=== PATIENT | male | born 1995 ===

== ENCOUNTER 2016-05-07 00:18 | Observation (INO) ==
[2016-05-07] MEDS ORDERED: HYDROmorphone 2 MG/1 ML VIAL IV STA (01:05)
[2016-05-07] MEDS ORDERED: ONDANSETRON 4 MG/2 ML VIAL IV STA (01:05)
[2016-05-07] MEDS ORDERED: ceFAZolin 1,000 MG VIAL IRRIG ONE (01:05)
[2016-05-07] MEDS ORDERED: ONDANSETRON 4 MG/2 ML VIAL ONE ×2 (01:13→07:45)
[2016-05-07] MEDS ORDERED: ceFAZolin 1,000 MG VIAL ONE ×2 (01:13→07:41)
[2016-05-07] MEDS ORDERED: HYDROmorphone 2 MG/1 ML VIAL ONE (01:13)
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
[2016-05-07] MEDS ORDERED: ONDANSETRON 4 MG/2 ML VIAL IV PRN (01:23)
[2016-05-07] MEDS ORDERED: DEXTROSE 5% NACL 0.45% 1,000 ML IV SCH (01:30)
[2016-05-07 01:47] LABS: PT Patient Result 10.2 SECS; Partial Thromboplastin Time 26.1 SECS (0-40)
[2016-05-07] MEDS ORDERED: INFLUENZA VIRUS VACCINE 0.5 ML SYRINGE IM ONE (02:41)
[2016-05-07] MEDS ORDERED: PNEUMOCOCCAL VACCINE (23 VALENT) 0.5 ML VIAL IM ONE (02:42)
[2016-05-07] MEDS: HYDROmorphone 2 MG/1 ML VIAL IV PRN ×2 (05:20→09:32)
[2016-05-07] MEDS ORDERED: BUPIVACAINE 0.25% 50 ML VIAL ONE (06:36)
[2016-05-07] MEDS ORDERED: ceFAZolin 2,000 MG in PREMIX 1 EACH IV ONE (07:36)
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
[2016-05-07] MEDS ORDERED: PHENYLEPHRINE 1 MG/10 ML SYRINGE IV ONE (07:45)
[2016-05-07] MEDS ORDERED: LIDOCAINE 2% 5 ML VIAL ONE (07:45)
[2016-05-07] MEDS ORDERED: PROPOFOL 200 MG/20 ML VIAL IV ONE (07:45)
--- NOTE | 2016-05-07 08:11 | Operative Note ---
Date of procedure: 05/07/16 Pre-op diagnosis: complex laceration right arm Post-op diagnosis: same Procedure: Complex closure 12 cm laceration right forearm involving skin and subcutaneous tissue fascia and muscle Findings and technique: After informed consent was obtained the patient was brought the operating room and placed in spine position. After successful induction with general anesthesia the patient's right arm was prepped and draped in usual sterile fashion. The wound was not actively bleeding. This laceration was a C-shaped type tangential laceration which extended through the fascia into the extensor muscle of his arm. It was not exposed bone or tendon. There was no exposed nerve and no active bleeding. His neurologic exam preoperatively appeared normal. The wound was copiously irrigated and now bits of debris debrided out of the subcutaneous layer. After copious irrigation the patient's wound was closed the deep layer of interrupted 3-0 Vicryl suture reapproximating the deep fascia and also another layer reapproximating the subcutaneous layer. The skin was closed with skin clips. A dressing was applied. He did receive perioperative IV antibiotics. He had extensive washout of this in the emergency room last night as well. Anesthesia: GETA Surgeon / Physician: Renan Martinez III. Estimated blood loss: minimal Specimens: none sent Condition: stable Disposition: PACU Discharge Plan - Discharge Data Disposition: Disch To Home/Self Care Condition at Discharge: Stable Discharge Diet: advance to your usual diet Activity: resume usual activities as tolerated - Discharge Medications No Action No Known Home Medications [No Known Home Medications] - Follow Up or Referral Follow Up: Renan Martinez III., MD [Physician] - 2 Weeks - Forms/Instructions Additional Discharge Instructions: I will write [place] prescription
--- NOTE | 2016-05-07 08:19 | Anesthesia ---
Anesthesia Post OP - Post Ansesthetic Evaluation Patient seen in post op: Yes Resp: within normal limits CV: within normal limits Mental: within normal limits Temp: within normal limits [id number]: within normal limits Nausea and Vomiting: within normal limits Pain: within normal limits
[2016-05-07] MEDS ORDERED: fentaNYL 100 MCG/2 ML VIAL ONE (08:24)
[2016-05-07] MEDS ORDERED: MIDAZOLAM 2 MG/2 ML VIAL ONE (08:24)
[2016-05-07] MEDS ORDERED: SEVOFLURANE 1 UNIT/15 MINUTE INH ONE (08:24)
[2016-05-07 13:58] VITALS: BP 115/67
== END 2016-05-07 13:05 | disposition home or self-care (01) ==
LOC: N.ED 00:18 → N.EDINP 00:18 → N.3E 02:05
PROVIDERS: ADMIT Surgery; ATTEND Surgery